=== PATIENT | female | born 1985 | race African-American/Black ===

== ENCOUNTER 2023-07-24 13:43 | Emergency (ER) | payer MEDICAID ==
[~2023-07-24] VITALS: Ht 162.6 cm; Wt 90.0 kg
[2023-07-24 13:47] VITALS: TEMP 99; O2SAT 100
[2023-07-24] MEDS ORDERED: SULF1TAB48 MT (14:40)
[2023-07-24] MEDS ORDERED: CEPH500C2 MT (14:40)
[2023-07-24] MEDS ORDERED: IBUP-2029 MT (14:40)
[2023-07-24 14:45] VITALS: BP 110/66; PULSE 82; RESP 16
[2023-07-24] MEDS ORDERED: CEPHALEXIN 250MG CAPSULE PO ONE (14:45)
[2023-07-24] MEDS ORDERED: IBUPROFEN 600MG TABLET PO ONE (14:45)
[2023-07-24] MEDS ORDERED: SULFAMETHOXAZOLE/TRIMETHOPRIM 800/160MG TABLET PO ONE (14:45)
== END 2023-07-24 15:16 | disposition home or self-care (01) ==
LOC: ER 13:43
DX: N61.0 Mastitis without abscess (principal); Z98.890 Other specified postprocedural states; Z91.040 Latex allergy status
CPT/HCPCS: 99284